=== PATIENT | female | born 1950 | race Caucasian/White ===

== ENCOUNTER 2017-02-16 07:43 | Inpatient (IN) | payer OTHER ==
[2017-02-03 14:36] VITALS: Ht 172.7 cm; Wt 85.8 kg
--- NOTE | 2017-02-03 15:24 | PAT Medication Instructions ---
Service Date Feb 03, 2017. Current Home Medication List Aspirin (Aspirin), 1 TAB PO BID Calcium/Vitamin D (Os-Tyler 500 Plus D), 1 TAB PO QDD Cholecalciferol (Vitamin D-3), 1 TAB PO QDD Docusate Sodium (Colace), 1 CAP PO BID Flecainide (Tambocor), 100 MG PO BID Levothyroxine Sodium (Synthroid), 50 MCG PO QAM Metoprolol Succ (Toprol Xl) (Toprol-Xl), 25 MG PO BID Metronidazole (Topical) (Metrocream), 1 APPLN TOP BID Misc Natural Products (Osteo Bi-Flex Joint Shiel), 2 TAB PO QDD Omeprazole (Prilosec), 20 MG PO QAM Potassium Chloride (Micro-K Ext Rel), 20 MEQ PO QAM Psyllium (Metamucil), Unknown Dose PO UD PRN for ID Simvastatin (Zocor), 40 MG PO QPM [Blue Emue - Oil ], 1 DOSE TOP UD Medication Instructions For Your Scheduled Surgery - Check with surgeon and metal cans supervisor for instructions: Aspirin (Aspirin), 325mg 1 TAB PO BID - Hold the following medications starting 02/03/17: Misc Natural Products (Osteo Bi-Flex Joint Shiel), 2 TAB PO QDD - Hold the following medications 24 hours prior to surgery: [Blue Emue - Oil ], 1 DOSE TOP UD Metronidazole (Topical) (Metrocream), 1 APPLN TOP BID - Hold the following medications the morning of surgery: Psyllium (Metamucil), Unknown Dose PO UD PRN for ID Potassium Chloride (Micro-K Ext Rel), 20 MEQ PO QAM Docusate Sodium (Colace), 1 CAP PO BID - Take the following medications the morning of surgery with a sip of water: Omeprazole (Prilosec), 20 MG PO QAM Levothyroxine Sodium (Synthroid), 50 MCG PO QAM Metoprolol Succ (Toprol Xl) (Toprol-Xl), 25 MG PO BID Flecainide (Tambocor), 100 MG PO BID - Take the following medications as scheduled the night before surgery: Simvastatin (Zocor), 40 MG PO QPM Metoprolol Succ (Toprol Xl) (Toprol-Xl), 25 MG PO BID Flecainide (Tambocor), 100 MG PO BID Cholecalciferol (Vitamin D-3), 1 TAB PO QDD Docusate Sodium (Colace), 1 CAP PO BID Calcium/Vitamin D (Os-Tyler 500 Plus D), 1 TAB PO QDD If you have any questions please call us at [phone] or [phone] or [phone]
[2017-02-03 16:05] LABS: BASO % 0.3 %; BASO ABS # 0.02 K/uL (0-0.2); COMPLETE YES; EOS % 1.6 %; HEMATOCRIT 38.9 % (37-47); IG% 0.3 %; LYMPH % 31.1 %; MEAN CELL VOLUME 96.3 fL (80-100); MEAN CORPUSCULAR HEMOGLOBIN 32.4 pg (25-34); MEAN CORPUSCULAR HGB CONC 33.7 g/dl (32-36); MEAN PLATELET VOLUME 9.9 fL (7.4-10.4); MONO % 7.4 %; NEUT % 59.3 %; PLATELET COUNT 201 K/uL (130-400); RED BLOOD COUNT 4.04 M/uL (4.2-5.4); WHITE BLOOD COUNT 5.79 K/uL (4.8-10.8)
[2017-02-03 16:23] LABS: BUN/CREATININE RATIO 17.2 (10-20); CREATININE 0.72 mg/dl (0.60-1.20); POTASSIUM 4.1 mmol/L (3.5-5.1)
[2017-02-03 16:24] LABS: PARTIAL THROMBOPLASTIN RATIO 0.9; PROTHROMBIN TIME (PATIENT) 10.3 SECONDS (9.0-12.0)
[2017-02-03 16:25] LABS: URINE APPEARANCE CLEAR (CLEAR); URINE BILIRUBIN NEG (NEG); URINE COLOR YELLOW; URINE NITRITE NEG (NEG); URINE SPECIFIC GRAVITY 1.014 (1.000-1.030); UROBILINOGEN NEG (NEG)
[2017-02-03 16:27] LABS: MANUAL MICROSCOPIC REQUIRED? NO; REVIEW REQ? NO
[2017-02-04 07:52] LABS: ESTIMATED AVERAGE GLUCOSE 117 mg/dl; HA1C FLAG Normal (Normal)
--- NOTE | 2017-02-15 14:38 | HISTORY & PHYSICAL EXAMINATION ---
DATE OF ADMISSION: 02/16/2017 CHIEF COMPLAINT: Right knee pain. HISTORY OF PRESENT ILLNESS: The patient is a 66-year-old female with known osteoarthritis about her right knee. She had a recent corticosteroid injection with short term relief. Due to ongoing pain and disability, she now desires to proceed with right total knee arthroplasty. PAST MEDICAL HISTORY: Hypercholesterolemia; atrial fibrillation; history of DVT x2, she states secondary to tamoxifen use after breast cancer; hypothyroidism; osteoarthritis; acid reflux; breast cancer. PAST SURGICAL HISTORY: Tubal ligation, tonsillectomy, left thumb, hysterectomy, right eye, vaginal prolapse, carpal tunnel, left breast lumpectomy, right breast lumpectomy, right knee meniscus, cardiac ablation, and cholecystectomy. MEDICATIONS: Aspirin 325 mg twice daily, calcium 600 plus D daily, vitamin D3 2000 units daily, Osteo Bi-Flex 2 tablets daily, Colace 100 mg 2 capsules in the evening and 1 in the a.m., flecainide 100 mg every 12 hours, levothyroxine 50 mcg daily, metoprolol succinate ER 25 mg twice daily, metronidazole gel for rosacea as needed, omeprazole 20 mg delayed release daily, potassium chloride extended release 20 mEq daily, Metamucil daily, simvastatin 40 mg at bedtime. ALLERGIES: No known drug allergies. SOCIAL HISTORY AND REVIEW OF SYSTEMS: Noncontributory. PHYSICAL EXAMINATION: GENERAL: Well-nourished, well-developed female who appears her stated age. HEENT: Normocephalic, atraumatic, extraocular movements intact, oropharynx pink and moist. NECK: Supple without adenopathy. LUNGS: Clear to auscultation bilaterally. HEART: Regular rate and rhythm. ABDOMEN: Soft, nontender, nondistended. EXTREMITIES: The upper extremities are within normal limits. The right knee has a valgus alignment. She complains of both the medial and lateral joint line tenderness. Her range of motion is approximately 0-125 degrees. X-RAYS: X-rays were reviewed. She has a slight valgus aligned knee. She has near [id number] arthritis of both medial and lateral compartments. She has moderate degenerative change about the patellofemoral joint as well. ASSESSMENT: Right knee degenerative joint disease. PLAN: Risks versus benefits were discussed, consent was obtained. The patient's primary care physician is Dr. Santiago from [place]. Her portfolio specialist is Dr. Vázquez from [place]. We will proceed with right total knee arthroplasty upon preoperative workup and medical clearance. YASMANI
[~2017-02-16] VITALS: Ht 172.7 cm; Wt 85.8 kg
[2017-02-16] VITALS (8 sets, daily range): BP systolic 99–128; BP diastolic 58–75; PULSE 58–63; TEMP 36.4–36.7; O2SAT 93–98
[~2017-02-16 07:43] MED LIST: ACETAMINOPHEN 500 MG TAB PO SCH; ASPI325T45 PO; BUPIVACAINE 0.5 % 5 MG/1 ML PF 10ML VIAL ONE; CALC500C70 PO; CEFAZOLIN 2000 MG/60 ML D5W 60 ML IV SCH; CHOL200027 PO; CeleBREX 200 MG CAP PO SCH; DEXAMETHASONE 4 MG TAB PO SCH; DOCU-94 PO; FLEC100T21 PO; FLECAINIDE ACETATE 100 MG TAB PO SCH; LACTATED RINGER'S 1000ML 1,000 ML IV SCH; LACTATED RINGER'S 1000ML 500 ML IV ONE; LEVO50TA PO; METO25TA3 PO; METOPROLOL SUCC 25MG EXT REL TAB PO SCH; METR0.754 TOP; MISCTAB30 PO; POTA10CA28 PO; PRLSR20 PO; PSYL48.59 PO; ROPIVACAINE 5MG/ML 30 ML 150 MG, BUPIVACAINE/EPINEPHR 0.5% MPF 30 ML, KETOROLAC TROMETH... INFIL SCH; SIMV40TA2 PO; [UNRECOGNIZED DRUG - OTHER] TOP
[2017-02-16] MEDS ORDERED: NURSING VERBAL MED ORDER ONE (08:30)
--- NOTE | 2017-02-16 08:48 | History & Physical Bridge Note ---
H&P Re-Evaluation Bridge Note: I have examined the patient, reviewed the History & Physical and in the interval since the performance of the History & Physical I have noted the following changes of clinical significance: No changes noted
[2017-02-16] MEDS ORDERED: ORTHO JOINT ANESTHETIC ONE (09:42)
[2017-02-16] MEDS ORDERED: POVIDONE-IODINE OP SOLN 30 ML BTL ONE (09:42)
[2017-02-16] MEDS ORDERED: BACITRACIN 50000 UNIT VIAL ONE (09:42)
[2017-02-16] MEDS ORDERED: FENTANYL CITRATE INJ 50 MCG/1 ML 2 ML VIAL ONE ×2 (09:52→10:12)
[2017-02-16] MEDS ORDERED: MIDAZOLAM HCL 1 MG/ML 2ML VIAL ONE ×2 (09:52)
[2017-02-16] MEDS ORDERED: ONDANSETRON INJ 2 MG/ML 2 ML VIAL IV PRN ×2 (10:00→11:30)
[2017-02-16] MEDS ORDERED: FENTANYL CITRATE INJ 50 MCG/1 ML 2 ML VIAL IV PRN (10:00)
[2017-02-16] MEDS ORDERED: ATROPINE SULFATE 0.1 MG/ML 5ML SYR IV PRN (10:00)
[2017-02-16] MEDS ORDERED: EpHEDrine SULFATE INJ 50 MG/ML AMP IV PRN (10:00)
[2017-02-16] MEDS ORDERED: PROPOFOL IV EMULSION 10 MG/ML 20 ML VIAL IV ONE (10:05)
[2017-02-16] MEDS ORDERED: ONDANSETRON INJ 2 MG/ML 2 ML VIAL ONE (10:05)
[2017-02-16] MEDS ORDERED: LIDOCAINE HCL 2% 2 ML VIAL (20MG/ML) ONE (10:05)
[2017-02-16] MEDS ORDERED: EpHEDrine SULFATE 50MG/5ML SYR ONE (10:14)
--- NOTE | 2017-02-16 10:45 | [facility] Post Operative Brief Note ---
Immediate Operative Summary Operative Date Feb 16, 2017. Pre-Operative Diagnosis Right knee degenerative joint disease Post-Operative Diagnosis same as pre-operative Procedure(s) Performed Right total knee arthroplasty-cemented Surgeon Dr. Alverto Riley Traffic Inspector Surgeon(s) YANG Philippe Estimated Blood Loss 20ml Findings OA Specimens Specimen A: Right knee bone and tissue Disposition Recovery Room / PACU
--- NOTE | 2017-02-16 11:01 | OPERATIVE REPORT ---
DATE OF OPERATION: 02/16/2017 PREOPERATIVE DIAGNOSIS: Osteoarthritis, right knee. POSTOPERATIVE DIAGNOSIS: Osteoarthritis, right knee. PROCEDURE: Right total knee arthroplasty. SURGEON: Dr. Riley. PERINATAL TECH: Luigi Bach PA-C ANESTHESIA: spinal. COMPLICATIONS: None. IMPLANTS USED: Femoral size 3 with pegs, tibia size 3 with extended stem, tibial poly 16 and patella size 35 asymmetric. OPERATION AND FINDINGS: Following induction of spinal anesthesia, the patient's right leg was prepped and draped in the usual sterile manner. Limb was exsanguinated with an Esmarch bandage and tourniquet was inflated to 350 mmHg. A longitudinal incision was made anteriorly. Subcutaneous tissue was sharply dissected. Electrocautery was used for hemostasis. Prepatellar bursa was incised and median parapatellar incision was performed. Patella was everted and the knee was flexed. Fat pad was removed to aid in visualization and the anterior and posterior cruciate ligaments were removed. The medial face of the tibia was cleared of soft tissue first with a Bovie and a Gerard elevator. This tissue was retracted posteriorly using a blunt Hohmann. A Blount retractor was used to expose the synovium above on the anterior aspect of the femur and this was removed down to bone. The PSI guide was placed on the distal femur and two pins were placed anteriorly and kept in position and two additional pins were placed distally and removed. The distal femoral cutting block was placed in position and the distal femoral cut was used in the +0 setting. Next, the cutting block was removed and the femoral 3 block was placed in the distal end of the femur. Care was taken to ensure appropriate external rotation and feeler gauge was used to ensure no notching would occur. The femoral block was centered on the distal femur and in the medial and lateral direction and was fixed using two bone screws. The gold pins were then removed. The oscillating saw was used to create the bone cuts and the distal femoral cutting block was removed and the reciprocating saw was used to further trim the femoral cuts as well as a deep in the area for the trochlear groove. Next, posterior condyle remnants were removed. Following this, a meniscal clamp and knife were utilized to remove the anterior portion of both medial and lateral meniscus. The proximal tibia PSI guide was placed into position and the proximal tibial cutting guide was screwed into position. The extra medullary alignment guide was utilized to ensure appropriate alignment. The proximal tibia was cut and the proximal tibial cutting block was removed and this bone fragment was removed. The appropriate guide was used to perform the notch cut on the distal femur and a lamina car packer and a cochlear knife were utilized to finish both medial and lateral meniscectomies to remove any remnants of the posterior or anterior cruciate ligaments. Following this, the distal femoral component was impacted into position and blunt Jerrica was used to sublux the tibia anteriorly. The proximal tibia was sized and a 3 tibial tray was chosen as the size to be used. This was put into position and appropriate external rotation and a double check with extramedullary alignment guide was performed. The canal for the tibial stem was prepared first with a 17 mm drill and then the punch and a mallet and the trial tibial poly was placed. A 16 was chosen the size to be used. It was brought to extension and the patella was prepared with the patellar reamer. A 35 component was chosen the size to be used. The trial component was placed and knee was taken through a full range of motion and there was found to be no lateral subluxation of the tibia. No lateral release was required. The trials were all removed. The final components were obtained and assembled. Cement was mixed. The knee was thoroughly irrigated and the ortho mix was injected about the knee joint. The final components were cemented into position. After thoroughly suctioning and drying the bone ends, all excess cement was removed. The knee was held in extension while the cement hardened. The wound was irrigated and closed over a Hemovac drain. #1 Vicryl was used to close the extensor mechanism. Subcutaneous tissues closed using 0 Dexon. Skin was closed with suzanne. Sterile dressing of Adaptic, 4 x 4's, sterile Webril, and Leno was applied. The patient tolerated the procedure well. Due to the complex nature of the procedure, the entire surgery was performed with the operational assistance of Luigi Bach PA-C. The showroom sales assistant, under direct supervision, was involved in the actual performance of all aspects of the surgical procedure including hemostasis, tissue retraction and incision, instrument management, patient positioning, and wound closure. DISPOSITION: Recovery room stable. I attest to the content of the Intraoperative Record and any orders documented therein. Any exceptions are noted below. YASMANI
[2017-02-16] MEDS ORDERED: MoRPHine SULFATE 2 MG/ML CARP IV PRN (11:30)
[2017-02-16] MEDS ORDERED: MAGNESIUM HYDROXIDE SUSP 30 ML UDC PO PRN (11:30)
[2017-02-16] MEDS ORDERED: ALUMINUM/MAGNESIUM/SIMETH (MAALOX MAX) 30 ML UDC PO PRN (11:30)
[2017-02-16] MEDS ORDERED: ZOLPIDEM TARTRATE 5 MG TAB PO PRN (11:30)
[2017-02-16] MEDS ORDERED: METOCLOPRAMIDE HCL INJ 5 MG/ML 2 ML VIAL IV PRN (11:30)
--- NOTE | 2017-02-16 11:42 | Anesthesiology Progress Note ---
Anesthesia Post Op Note Date & Time Feb 16, 2017 at 11:42 Vital Signs Pain Intensity: 0 Vital Signs Past 12 Hours Date Time Temp Pulse Resp B/P (MAP) Pulse Ox O2 Delivery O2 Flow Rate FiO2 02/16/17 11:30 61 16 123/62 99 Oxymask 10 02/16/17 11:23 36.4 61 16 121/62 100 Oxymask 10 02/16/17 08:36 58 18 127/70 98 Room Air Notes Mental Status: alert / awake / arousable, participated in evaluation Pt Amnestic to Procedure: Yes Nausea / Vomiting: adequately controlled Pain: adequately controlled Airway Patency, RR, SpO2: stable & adequate BP & HR: stable & adequate Hydration State: stable & adequate Neuraxial Anesthesia: was administered, sensory block is resolving Anesthetic Complications: no major complications apparent
--- NOTE | 2017-02-16 11:57 | DIAGNOSTIC IMAGING REPORT ---
R KNEE 1 OR 2 VIEWS ROUTINE CLINICAL HISTORY: AP/LATERAL IN PACU RIGHT KNEE postoperative evaluation COMPARISON: None. DISCUSSION: Anatomic alignment status post total right knee arthroplasty. Good contact between prosthetic and underlying bone. Surgical drains are in position. Expected postoperative soft tissue change. IMPRESSION: Anatomic alignment status post total right knee arthroplasty. The above report was generated using voice recognition software. It may contain grammatical, syntax or spelling errors. Electronically signed by: Dano Roberson M.D. 02/16/2017 11:55 AM Dictated Date/Time: 02/16/2017 11:55 AM
[2017-02-16] MEDS ORDERED: MoRPHine SULFATE 10 MG/ML CARP/VIAL IV PRN (12:00)
[2017-02-16] MEDS ORDERED: MoRPHine SULFATE 4 MG/ML 1 ML CARP\\VIAL IV PRN (12:00)
[2017-02-16] MEDS: D5W AND 1/2NSS + 20MEQ KCL 1,000 ML IV SCH ×2 (14:30→23:59)
--- NOTE | 2017-02-16 15:09 | Medical Consult ---
Consultation Date of Consultation: Feb 16, 2017. Attending Physician: Alverto Riley M.D. Reason for Consultation: Post op management History of Present Illness Pt is a 66 yo female with known OA of right knee s/p right TKA and consulted to our services for postop management. Pt comfortable upon interview, reports hx of afib with ablation scheduled in March 2017. She reports taking flecainide in addition to metoprolol and ASA as well. Pt also has hx hypercholesterolemia, history of DVT x2, she states secondary to tamoxifen use after breast cancer, hypothyroidism, osteoarthritis, acid reflux, breast cancer. Social History Smoking Status: Never Smoker Smokeless Tobacco Use: No Alcohol Use: none Marital Status: Allergies Coded Allergies: Latex (Verified Allergy, Unknown, REDNESS, 02/16/17) Current Inpatient Medications Current Inpatient Medications Medications (Trade) Dose Ordered Sig/Mini Route Start Time Stop Time Status Last Admin Dose Admin Potassium Chloride/Dextrose/ Sod Cl 1,000 ml @ 100 mls/hr Q10H IV 02/16/17 13:45 03/18/17 13:44 02/16/17 14:30 100 MLS/HR Cefazolin Sodium 2000 mg/Dextrose 60 ml @ 100 mls/hr Q8H IV 02/16/17 18:00 02/17/17 02:35 Ketorolac Tromethamine (Toradol Inj) 30 mg Q6H IV. 02/16/17 18:00 02/17/17 17:59 Celecoxib (CeleBREX CAP) 200 mg BID PO 02/17/17 21:00 03/19/17 20:59 Oxycodone HCl (Roxicodone Immediate Rel Tab) 1 TABLET FOR PAIN RATING... Q4H PRN PO 02/16/17 11:30 03/02/17 11:29 Morphine Sulfate (MoRPHine SULFATE INJ) 2 mg Q2HWA PRN IV 02/16/17 11:30 03/02/17 11:29 Acetaminophen (Tylenol Tab) 1,000 mg Q8 PO 02/16/17 22:00 03/18/17 21:59 Magnesium Hydroxide (Milk Of Magnesia Susp) 30 ml Q6H PRN PO 02/16/17 11:30 03/18/17 11:29 Docusate Sodium (coLACE CAP) 100 mg BID PO 02/16/17 21:00 03/18/17 20:59 Diphenhydramine HCl (Benadryl Cap) 25 mg Q8H PRN PO 02/16/17 11:30 03/18/17 11:29 Al Hydrox/Mg Hydrox/Simethicone (Maalox Max Susp) 15 ml Q4H PRN PO 02/16/17 11:30 03/18/17 11:29 Zolpidem Tartrate (Ambien Tab) 5 mg HSZ PRN PO 02/16/17 11:30 03/18/17 11:29 Multivitamins (Multivitamin Tab) 1 tab QAM PO 02/17/17 09:00 03/19/17 08:59 Ondansetron HCl (Zofran Inj) 4 mg Q6H PRN IV 02/16/17 11:30 03/18/17 11:29 Metoclopramide HCl (Reglan Inj) 10 mg Q6H PRN IV 02/16/17 11:30 03/18/17 11:29 Ferrous Gluconate (Ferrous Gluconate Tab) 324 mg TIDM PO 02/16/17 17:45 03/18/17 17:44 Pantoprazole Sodium (Protonix Tab) 40 mg QAM PO 02/17/17 09:00 03/19/17 08:59 Dexamethasone Sodium Phosphate 10 mg/Syringe 2.5 ml @ 1 mls/min TODAY@0730 IV 02/17/17 07:30 02/17/17 07:33 Rivaroxaban (Xarelto Tab) 10 mg Q24H PO 02/17/17 11:00 03/01/17 10:59 Aspirin (Ecotrin Tab) 325 mg BID PO 02/16/17 21:00 03/18/17 20:59 Flecainide Acetate (Tambocor Tab) 100 mg BID PO 02/16/17 21:00 03/18/17 20:59 Levothyroxine Sodium (Synthroid Tab) 50 mcg DAILYBB PO 02/17/17 06:00 03/19/17 05:59 Metoprolol Succinate (Toprol Xl Tab) 25 mg BID PO 02/16/17 21:00 03/18/17 20:59 Simvastatin (Zocor Tab) 40 mg QPM PO 02/16/17 21:00 03/18/17 20:59 Morphine Sulfate (MoRPHine SULFATE INJ) 4 mg Q2HWA PRN IV 02/16/17 12:00 03/02/17 11:59 Morphine Sulfate (MoRPHine SULFATE INJ) 6 mg Q2HWA PRN IV 02/16/17 12:00 03/02/17 11:59 Review of Systems Constitutional: No fever, No chills, No sweats, No weakness Eyes: No worsening of vision, No eye pain, No redness, No discharge Respiratory: No cough, No sputum, No wheezing, No shortness of breath, No dyspnea on exertion Cardiovascular: No chest pain, No orthopnea, No PND, No edema Abdomen: No pain, No nausea, No vomiting, No diarrhea Musculoskeletal: + joint pain, No muscle pain, No swelling, No calf pain Genitourinary - Female: No dysuria, No urinary frequency, No urinary urgency, No urinary incontinence Neurologic: No memory loss, No paralysis, No weakness, No numbness/tingling Psychiatric: No depression symptoms, No anhedonism, No anxiety, No insomnia Endocrine: No fatigue, No excessive thirst, No excessive urination Integumentary: No rash, No itch Allergic / Immunologic: No environmental allergies, No seasonal allergies Physical Exam Date Time Temp Pulse Resp B/P (MAP) Pulse Ox O2 Delivery O2 Flow Rate FiO2 02/16/17 14:11 61 16 120/75 (90) 97 Nasal Cannula 2.0 02/16/17 13:40 58 19 128/71 (90) 96 Nasal Cannula 2.0 02/16/17 13:10 96 Nasal Cannula 2.0 02/16/17 13:10 36.6 62 16 112/69 (83) 96 Nasal Cannula 2.0 02/16/17 13:10 Nasal Cannula 2.0 02/16/17 12:45 59 16 111/58 95 Nasal Cannula 2 02/16/17 12:35 57 16 106/59 95 Nasal Cannula 2 02/16/17 12:20 60 16 109/62 95 Nasal Cannula 2 02/16/17 12:05 63 14 121/61 99 Oxymask 2 02/16/17 11:50 36.4 61 16 124/64 99 Oxymask 2 02/16/17 11:40 58 16 121/58 99 Oxymask 2 02/16/17 11:30 61 16 123/62 99 Oxymask 10 02/16/17 11:23 36.4 61 16 121/62 100 Oxymask 10 02/16/17 08:36 58 18 127/70 98 Room Air General Appearance: WD/WN, no apparent distress Eyes: normal inspection, PERRL, EOMI, sclerae normal ENT: normal ENT inspection, hearing grossly normal, TMs normal, pharynx normal Neck: supple, no adenopathy, thyroid normal, no JVD Respiratory/Chest: chest non-tender, lungs clear, normal breath sounds, no respiratory distress Cardiovascular: no edema, no gallop, no JVD, no murmur Abdomen/GI: normal bowel sounds, non tender, soft, no organomegaly Back: normal inspection, no CVA tenderness, no muscle spasm Neurologic/Psych: no motor/sensory deficits, alert, normal mood/affect, oriented x 3 Skin: normal color, warm/dry, no rash Lymphatic: no adenopathy Assessment & Plan Pt is a 66 yo female admitted for right TKA and consulted to our services for post op management Right TKA, pain controlled at this time. Will obtain CBC to evaluation for acute blood loss anemia Afib - Cont flecainide at this time, would hold metoprolol due to bradycardia. Pt denies any sx at this time Pt was on ASA before, good candidate for eliquis or xarelto, will leave decision to primary team. Due for ablation in march Dyslipidemia - Cont zocor Hypothyroidism - Cont synthroid GERD - Cont protonix Hx of breast cancer
[2017-02-16 16:09] LABS: COMPLETE YES; HEMATOCRIT 35.7 % (37-47); IG% 0.4 %; LYMPH % 5.1 %; LYMPH ABS # 0.43 K/uL (1.2-3.4); MEAN CELL VOLUME 96.5 fL (80-100); MEAN CORPUSCULAR HEMOGLOBIN 31.9 pg (25-34); MEAN CORPUSCULAR HGB CONC 33.1 g/dl (32-36); MEAN PLATELET VOLUME 9.9 fL (7.4-10.4); MONO % 1.2 %; NEUT % 93.3 %; PLATELET COUNT 192 K/uL (130-400); WHITE BLOOD COUNT 8.45 K/uL (4.8-10.8)
[2017-02-16 16:33] LABS: CALCIUM 8.5 mg/dl (8.5-10.1); CREATININE 0.91 mg/dl (0.60-1.20)
[2017-02-16] MEDS: CEFAZOLIN IV 2,000 MG in DEXTROSE 5% 50ML 50 ML IV SCH (18:13)
[2017-02-16] MEDS: KETOROLAC TROMETHAMINE 30 MG/ML VIAL IV. SCH ×2 (18:13→23:59)
[2017-02-16] MEDS: OXYCODONE HCL IR 5 MG TAB (IMMEDIATE RELEASE) PO PRN (18:15)
[2017-02-16] MEDS: FERROUS GLUCONATE 324 MG TAB PO SCH (18:17)
[2017-02-16] MEDS: SIMVASTATIN 40 MG TAB PO SCH (20:49)
[2017-02-16] MEDS: FLECAINIDE ACETATE 100 MG TAB PO SCH (20:49)
[2017-02-16] MEDS: DOCUSATE SODIUM 100 MG CAP PO SCH (20:50)
[2017-02-16] MEDS ORDERED: METOPROLOL SUCC 25MG EXT REL TAB PO SCH (21:00)
[2017-02-16] MEDS: ASPIRIN 325 MG ECTAB PO SCH (21:07)
[2017-02-16] MEDS: ACETAMINOPHEN 500 MG TAB PO SCH (21:07)
[2017-02-17] MEDS: CEFAZOLIN IV 2,000 MG in DEXTROSE 5% 50ML 50 ML IV SCH (02:06)
[2017-02-17 03:55] VITALS: BP 94/56; PULSE 61; TEMP 36.5; O2SAT 93
[2017-02-17] MEDS: OXYCODONE HCL IR 5 MG TAB (IMMEDIATE RELEASE) PO PRN ×4 (04:10→23:45)
[2017-02-17] MEDS: ACETAMINOPHEN 500 MG TAB PO SCH ×3 (05:32→21:54)
[2017-02-17] MEDS: LEVOTHYROXINE 50 MCG TAB PO SCH (05:32)
[2017-02-17] MEDS: KETOROLAC TROMETHAMINE 30 MG/ML VIAL IV. SCH ×2 (05:33→11:53)
[2017-02-17 06:25] LABS: HEMATOCRIT 30.2 % (37-47); MEAN CELL VOLUME 96.5 fL (80-100); MEAN CORPUSCULAR HEMOGLOBIN 31.3 pg (25-34); MEAN CORPUSCULAR HGB CONC 32.5 g/dl (32-36); MEAN PLATELET VOLUME 9.8 fL (7.4-10.4); PLATELET COUNT 201 K/uL (130-400); RED BLOOD COUNT 3.13 M/uL (4.2-5.4); WHITE BLOOD COUNT 9.84 K/uL (4.8-10.8)
[2017-02-17 06:56] LABS: BUN/CREATININE RATIO 13.9 (10-20); CREATININE 0.72 mg/dl (0.60-1.20)
[2017-02-17 07:03] VITALS: BP 108/60; PULSE 61; TEMP 36.8; O2SAT 100
[2017-02-17] MEDS ORDERED: DEXAMETHASONE INJ 10 MG in SYRINGE 0 ML IV SCH (07:30)
--- NOTE | 2017-02-17 07:44 | Orthopedic Progress Note ---
Orthopedic Progress Note Date of Service Feb 17, 2017. Subjective Post OP Day: 1 Reports: feeling well Objective N/V intact, dressing C/D/I (Hemovac d/c'd), toes mobile Date Time Temp Pulse Resp B/P (MAP) Pulse Ox O2 Delivery O2 Flow Rate FiO2 02/17/17 07:03 36.8 61 17 108/60 (76) 100 Room Air 02/17/17 03:55 36.5 61 17 94/56 (69) 93 Room Air 02/16/17 23:15 Room Air 02/16/17 22:49 36.5 59 17 99/60 (73) 95 Room Air 02/16/17 19:26 36.7 62 18 100/58 (72) 93 Room Air 02/16/17 16:29 36.5 60 18 122/71 (88) 98 Nasal Cannula 3.0 02/16/17 15:17 36.4 63 18 115/66 (82) 97 Nasal Cannula 2.0 02/16/17 15:10 Nasal Cannula 2.0 02/16/17 14:11 61 16 120/75 (90) 97 Nasal Cannula 2.0 02/16/17 13:40 58 19 128/71 (90) 96 Nasal Cannula 2.0 02/16/17 13:10 96 Nasal Cannula 2.0 02/16/17 13:10 36.6 62 16 112/69 (83) 96 Nasal Cannula 2.0 02/16/17 13:10 Nasal Cannula 2.0 02/16/17 12:45 59 16 111/58 95 Nasal Cannula 2 02/16/17 12:35 57 16 106/59 95 Nasal Cannula 2 02/16/17 12:20 60 16 109/62 95 Nasal Cannula 2 02/16/17 12:05 63 14 121/61 99 Oxymask 2 02/16/17 11:50 36.4 61 16 124/64 99 Oxymask 2 02/16/17 11:40 58 16 121/58 99 Oxymask 2 02/16/17 11:30 61 16 123/62 99 Oxymask 10 02/16/17 11:23 36.4 61 16 121/62 100 Oxymask 10 02/16/17 08:36 58 18 127/70 98 Room Air Laboratory Results 24 Hours: Test 02/16/17 15:44 02/17/17 05:45 White Blood Count 8.45 K/uL Red Blood Count 3.70 M/uL Hemoglobin 11.8 g/dL 9.8 g/dL Hematocrit 35.7 % 30.2 % Mean Corpuscular Volume 96.5 fL Mean Corpuscular Hemoglobin 31.9 pg Mean Corpuscular Hemoglobin Concent 33.1 g/dl Platelet Count 192 K/uL Mean Platelet Volume 9.9 fL Neutrophils (%) (Auto) 93.3 % Lymphocytes (%) (Auto) 5.1 % Monocytes (%) (Auto) 1.2 % Eosinophils (%) (Auto) 0.0 % Basophils (%) (Auto) 0.0 % Neutrophils # (Auto) 7.89 K/uL Lymphocytes # (Auto) 0.43 K/uL Monocytes # (Auto) 0.10 K/uL Eosinophils # (Auto) 0.00 K/uL Basophils # (Auto) 0.00 K/uL Assessment & Plan Assessment: 66 yo female stable POD #1 s/p right TKA Plan: 1. Med management 2. DVT prophylaxis- Xarelto, SCDs 3. PT/OT 4. D/C planning- home w/ OPPT
[2017-02-17] MEDS ORDERED: XRL10 PO (07:49)
[2017-02-17] MEDS ORDERED: CLB200 PO (07:49)
[2017-02-17] MEDS ORDERED: RXC5 PO (07:49)
[2017-02-17] MEDS ORDERED: ACET-24 PO (07:50)
[2017-02-17] MEDS ORDERED: ONDA8TAB12 PO (07:50)
--- NOTE | 2017-02-17 07:52 | Discharge Instructions ---
Discharge Instructions Date of Service Feb 17, 2017. Admission Reason for Admission: Right Knee Osteoarthritis Discharge Discharge Diagnosis / Problem: Right knee arthritis Discharge Goals Goal(s): Decrease discomfort, Improve function Activity Recommendations Activity Limitations: as noted below Weightbearing Status: Right weightbearing (as tolerated) . Instructions / Follow-Up Instructions / Follow-Up ACTIVITY RECOMMENDATIONS: SELF CARE INSTRUCTIONS AFTER TOTAL KNEE REPLACEMENT A. You may need to continue a physical therapy program after discharge from the hospital. There are several options available to you. Your doctor will assist you in selecting the best one for you. 1. An out-patient facility 2 to 3 times a week for therapy or home therapy. 2. Continue working on all exercises taught to you in the hospital. Your goals should be to increase bending of your knee to 90 degrees and beyond and to fully straighten your knee. B. You may progress at your own pace from walking with a walker or crutches to a cane; then to no assistive devices. C. Make walking a part of your daily routine. Be up as much as comfortable with rest periods throughout the day. Rest with leg elevation is very important. Use the ice wrap frequently for the first 3-4 weeks. D. There are no restrictions on activities. You may ride in a car, shop, participate in director of infection control and all social activities. E. Wear the long elastic stockings (CLARISSA hose) 20 hours a day for 2 weeks after surgery. They can be removed several times a day for laundering and for a bath. F. You may shower, no tub baths until cleared by your doctor. SPECIAL CARE INSTRUCTIONS: VERY IMPORTANT TO READ AND REVIEW A. There are a few signs you need to watch for after you are home. Call [facility] if you notice any of the followin. Increased severe knee pain. Some pain is expected especially when you exercise. 2. Increased swelling in your leg or knee; pain or swelling of the calf muscle in either lower leg. 3. Any fluid drainage from the incision. 4. Shortness of breath or chest pain. B. Please call [facility] at if you have any concerns or questions about your operation or recovery. The doctor or his nurse will return your call promptly. C. You must take antibiotics before dental work, bladder, bowel or other surgery. Your doctor will provide you with a permanent care to carry describing this precaution. IMPORTANT: * REMEMBER TO TAKE ASPIRIN, 81 MG, TWICE DAILY FOR 4 WEEKS UNLESS OTHERWISE DIRECTED. THIS IS YOUR BLOOD THINNER. * HIGH RISK PATIENTS MAY BE PRESCRIBED A STRONGER BLOOD THINNER. THIS WILL BE PROVIDED AT DISCHARGE. * CALL IF INCREASED PAIN, REDNESS, DRAINAGE OR FEVER GREATER THAT 101. * WEAR CLARISSA HOSE 20 HOURS PER DAY FOR 2 WEEKS. Silverlon- This is a large adhesive bandage that contains silver ions. This helps your incision heal by fighting off bacteria and protecting it from the outside environment. You are permitted to shower with this dressing. This will remain on your incision for 7 days and then should be removed. Some visible blood or drainage through the dressing window is normal. If there is significant drainage or leaking noted before the 7 days notify your doctor's office immediately. Once removed, keep incision clean and dry. If there is any drainage or redness noted, please call your surgeon. FOLLOW UP VISIT: If appointment is not already scheduled: Please call [facility] to make a follow-up appointment for 2 weeks after your surgery at . Current Hospital Diet Patient's current hospital diet: Regular Diet Discharge Diet Recommended Diet: Regular Diet Procedures Procedures Performed: Right total knee arthroplasty-cemented Pending Studies Studies pending at discharge: no Laboratory Results Hemoglobin A1c Test 02/03/17 15:45 Range/Units Estimated Average Glucose 117 mg/dl Hemoglobin A1c 5.7 H 4.5-5.6 % Medical Emergencies . Who to Call and When: Medical Emergencies: If at any time you feel your situation is an emergency, please call 911 immediately. . Non-Emergent Contact Non-Emergency issues call your: Surgeon Call Non-Emergent contact if: temperature is above 101.5, your pain is not controlled, wound has increased drainage, wound has increased redness . "Provider Documentation" section prepared by Luigi Bach PA-C. . VTE Core Measure Inpt VTE Proph given/why not?: Other Anticoagulation (Xarelto), T.E.D. Stockings, SCD's [place] Drug Monitoring Program Search Results: patient reviewed within database, no issues identified
--- NOTE | 2017-02-17 08:26 | Anesthesiology Progress Note ---
Anesthesia Post Op Note Date & Time Feb 17, 2017 at 08:26 Vital Signs Vital Signs Past 12 Hours Date Time Temp Pulse Resp B/P (MAP) Pulse Ox O2 Delivery O2 Flow Rate FiO2 02/17/17 07:03 36.8 61 17 108/60 (76) 100 Room Air 02/17/17 03:55 36.5 61 17 94/56 (69) 93 Room Air 02/16/17 23:15 Room Air 02/16/17 22:49 36.5 59 17 99/60 (73) 95 Room Air Notes Mental Status: alert / awake / arousable, participated in evaluation Pt Amnestic to Procedure: Yes Nausea / Vomiting: adequately controlled Pain: adequately controlled Airway Patency, RR, SpO2: stable & adequate BP & HR: stable & adequate Hydration State: stable & adequate Anesthetic Complications: no major complications apparent
[2017-02-17] MEDS: MULTIVITAMIN TAB PO SCH (09:30)
[2017-02-17] MEDS: DOCUSATE SODIUM 100 MG CAP PO SCH ×2 (09:30→20:33)
[2017-02-17] MEDS: FLECAINIDE ACETATE 100 MG TAB PO SCH ×2 (09:30→20:34)
[2017-02-17] MEDS: FERROUS GLUCONATE 324 MG TAB PO SCH ×3 (09:31→17:54)
[2017-02-17] MEDS: PANTOprazole SOD 40 MG TAB PO SCH (09:31)
[2017-02-17 10:59] VITALS: BP 105/60; PULSE 65; TEMP 36.9; O2SAT 93
[2017-02-17] MEDS: ASPIRIN 325 MG ECTAB PO SCH ×2 (11:53→20:33)
[2017-02-17] MEDS: RIVAROXABAN 10 MG TAB PO SCH (12:11)
[2017-02-17 14:49] VITALS: BP 108/65; PULSE 72; TEMP 36.8; O2SAT 98
--- NOTE | 2017-02-17 17:18 | Progress Note ---
Subjective Date of Service: Feb 17, 2017. Subjective Pt evaluation today including: conversation w/ patient, physical exam, chart review, lab review, review of inpatient medication list feeling good overall. pain well controlled. no racing heart. no complaints at all in general. notes that she's only had afib for most of 2016, not prior. notes she does feel racing from time to time. no noted CHF. notes when racing she also has to void more. also notes recent Dx SHANE - just getting used to CPAP. Review of Systems all other ROS otherwise negative except for as above Objective Vital Signs Date Time Temp Pulse Resp B/P (MAP) Pulse Ox O2 Delivery O2 Flow Rate FiO2 02/17/17 14:49 36.8 72 18 108/65 (79) 98 Room Air 02/17/17 10:59 36.9 65 17 105/60 (75) 93 Room Air 02/17/17 08:05 Room Air 02/17/17 07:03 36.8 61 17 108/60 (76) 100 Room Air 02/17/17 03:55 36.5 61 17 94/56 (69) 93 Room Air 02/16/17 23:15 Room Air 02/16/17 22:49 36.5 59 17 99/60 (73) 95 Room Air 02/16/17 19:26 36.7 62 18 100/58 (72) 93 Room Air Physical Exam General Appearance: no apparent distress Eyes: EOMI Neck: trachea midline Respiratory/Chest: no respiratory distress, no accessory muscle use 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, alert, normal mood/affect Skin: normal color, warm/dry Laboratory Results Last 24 Hours Test 02/17/17 05:45 White Blood Count 9.84 K/uL Red Blood Count 3.13 M/uL Hemoglobin 9.8 g/dL Hematocrit 30.2 % Mean Corpuscular Volume 96.5 fL Mean Corpuscular Hemoglobin 31.3 pg Mean Corpuscular Hemoglobin Concent 32.5 g/dl RDW Standard Deviation 48.0 fL RDW Coefficient of Variation 13.8 % Platelet Count 201 K/uL Mean Platelet Volume 9.8 fL Sodium Level 143 mmol/L Potassium Level 4.0 mmol/L Chloride Level 109 mmol/L Carbon Dioxide Level 29 mmol/L Anion Gap 5.0 mmol/L Blood Urea Nitrogen 10 mg/dl Creatinine 0.72 mg/dl Est Creatinine Clear Calc Drug Dose 90.5 ml/min Estimated GFR () 102.6 Estimated GFR (Non- 88.5 BUN/Creatinine Ratio 13.9 Random Glucose 122 mg/dl Calcium Level 8.0 mg/dl Assessment and Plan Right TKA, pain controlled at this time. Afib - Cont flecainide at this time, will give low dose metoprolol tartrate due to relative bradycardia but not wanting beta constance rebound tachycardia. obviously can resume regular home dose if HR increases (during hospital stay, would look at "arbitrary" line of HR above 90 as reasonable threshold to resume metoprolol home dosing). discussed afib in general with pt since new dx to her. no DM, HTN, vascular disease, CHF, prior TIA/stroke etc so right now calculates to CHADS2-Vasc of 0 -- but d/w pt that ablation not "curative' so should she gradually accumulate risks she would eventually warrant systemic anticoagulation. SHANE - extensive discussion on SHANE, CPAP, management and "fallout" comorbidities that can result from untreated SHANE. she is working actively w [employer] for CPAP acute blood loss anemia - hemodynamically stable and asymptomatic. no need for transfusion at this time Dyslipidemia - Cont zocor Hypothyroidism - Cont synthroid GERD - Cont protonix Hx of breast cancer DVT proph - xarelto
[2017-02-17] MEDS: CeleBREX 200 MG CAP PO SCH (20:33)
[2017-02-17] MEDS: SIMVASTATIN 40 MG TAB PO SCH (20:35)
[2017-02-17] MEDS: METOPROLOL TARTRATE 25 MG TAB PO SCH (20:36)
[2017-02-17 23:25] VITALS: BP 106/63; PULSE 55; TEMP 36.4; O2SAT 97
[2017-02-18] MEDS: OXYCODONE HCL IR 5 MG TAB (IMMEDIATE RELEASE) PO PRN ×2 (04:11→08:19)
[2017-02-18] MEDS: ACETAMINOPHEN 500 MG TAB PO SCH (05:49)
[2017-02-18] MEDS: LEVOTHYROXINE 50 MCG TAB PO SCH (05:49)
[2017-02-18 06:34] VITALS: BP 109/67; PULSE 60; TEMP 36.4; O2SAT 95
[2017-02-18 08:11] VITALS: BP 109/67; PULSE 60; TEMP 36.4; O2SAT 95
--- NOTE | 2017-02-18 08:18 | Orthopedic Progress Note ---
Orthopedic Progress Note Date of Service Feb 18, 2017. Subjective Post OP Day: 2 Reports: feeling well Objective calves soft nontender, N/V intact, dressing C/D/I, toes mobile Date Time Temp Pulse Resp B/P (MAP) Pulse Ox O2 Delivery O2 Flow Rate FiO2 02/18/17 08:11 36.4 60 16 95 Room Air 02/18/17 07:00 Room Air 02/18/17 06:34 36.4 60 16 109/67 (81) 95 Room Air 02/17/17 23:45 Room Air 02/17/17 23:25 36.4 55 16 106/63 (77) 97 Room Air 02/17/17 15:20 Room Air 02/17/17 14:49 36.8 72 18 108/65 (79) 98 Room Air 02/17/17 10:59 36.9 65 17 105/60 (75) 93 Room Air Assessment & Plan Assessment: 66 yo female stable POD #2 s/p right TKA Plan: 1. Med management 2. DVT prophylaxis- [facility] [place] 3. PT/OT 4. D/C planning- home w/ OPPT
[2017-02-18] MEDS: ASPIRIN 325 MG ECTAB PO SCH (08:19)
[2017-02-18] MEDS: FERROUS GLUCONATE 324 MG TAB PO SCH (08:20)
[2017-02-18] MEDS: CeleBREX 200 MG CAP PO SCH (08:20)
[2017-02-18] MEDS: FLECAINIDE ACETATE 100 MG TAB PO SCH (08:20)
[2017-02-18] MEDS: DOCUSATE SODIUM 100 MG CAP PO SCH (08:21)
[2017-02-18] MEDS: MULTIVITAMIN TAB PO SCH (08:21)
[2017-02-18] MEDS: PANTOprazole SOD 40 MG TAB PO SCH (08:21)
[2017-02-18] MEDS: METOPROLOL TARTRATE 25 MG TAB PO SCH (08:22)
[2017-02-18] MEDS: RIVAROXABAN 10 MG TAB PO SCH (10:57)
--- NOTE | 2017-03-01 18:57 | DISCHARGE SUMMARY ---
CHIEF COMPLAINT: Right knee pain. Please see complete history and physical examination. HOSPITAL COURSE: The patient underwent right total knee arthroplasty without complication. She tolerated the procedure well and was discharged to recovery room in stable condition. Her postoperative course was relatively uneventful. Her postoperative pain was reasonably well controlled with a combination of spinal anesthesia, adductor canal block, intraoperative joint injection, IV, and oral pain medications. She was started on Xarelto for DVT prophylaxis. She also utilized CLARISSA stockings and SCDs for additional prophylaxis. Her H&H was stable and did not require transfusion. A medical consultation was asked for to assist in her postoperative medical management. Again, patient did not have any significant postoperative medical issues. Her surgical drain was discontinued on postoperative day 1, her surgical dressing will remain in place for approximately 7 days postoperative. She tolerated postoperative physical therapy reasonably well where she was bending her knee and ambulating appropriately. She was discharged home on postop day 2. She will continue her physical therapy as an outpatient. She will continue her Xarelto for DVT prophylaxis and follow up in our office in approximately 10-14 days for initial postop evaluation.
== END 2017-02-18 11:56 | disposition home or self-care (01) | DRG 470 ==
LOC: C.ACU 07:43 → C.3E 08:25 → ENRESERV 12:21
PROC: 0SRC0J9 Replacement of Right Knee Joint with Synthetic Substitute, Cemented, Open Approach (ICD-10-PCS; principal; 2017-02-16 10:45)
DX: M17.11 Unilateral primary osteoarthritis, right knee (principal); D62 Acute posthemorrhagic anemia; I48.92 Unspecified atrial flutter; E78.00 Pure hypercholesterolemia, unspecified; I48.91 Unspecified atrial fibrillation; E78.5 Hyperlipidemia, unspecified; E03.9 Hypothyroidism, unspecified; K21.9 Gastro-esophageal reflux disease without esophagitis; K44.9 Diaphragmatic hernia without obstruction or gangrene; G47.33 Obstructive sleep apnea (adult) (pediatric); E66.9 Obesity, unspecified; M54.5 Low back pain; M54.2 Cervicalgia; Z68.28 Body mass index [BMI] 28.0-28.9, adult; Z99.89 Dependence on other enabling machines and devices; Z79.899 Other long term (current) drug therapy